=== PATIENT | female | born 1935 ===

== ENCOUNTER 2018-03-19 07:37 | Outpatient (CLI) | payer OTHER ==
[~2018-03-19 07:37] MED LIST: AVAPRO300 MG PO; CARVEDILOL12.5 MG PO; ENALAPRIL MALEA20 MG PO; GLIPIZIDE2.5 MG/BO1 PO; HYDRALAZINE HCL25 MG PO; PERCOCET 5/3251 TAB PO; SYNTHROID100 MCG PO; [UNRECOGNIZED DRUG - OTHER] PO
== END 2018-03-19 07:41 | disposition home or self-care (01) ==
LOC: SONOGRAMA 07:37
DX: E04.1 Nontoxic single thyroid nodule (principal)